=== PATIENT | female | born 1990 | race Caucasian/White ===

== ENCOUNTER 2021-08-14 00:28 | Outpatient (CLI) | payer BC ==
[~2021-08-14] VITALS: Ht 175.3 cm; Wt 132.7 kg
[2021-08-14 00:40] VITALS: BP 143/87; PULSE 88; TEMP 97.7
[2021-08-14] MEDS ORDERED: PRENATAL TABLET PO (00:55)
[2021-08-14 01:00] VITALS: BP 126/70; PULSE 81
--- NOTE | 2021-08-14 02:15 | NUR ---
0030- PT ARRIVES TO OB UNIT, AMBULATORY, ACCOMPANIED BY SPOUSE. PT C/O CTX. +FM, -LOF, -VB. 0035- DR. GONZALEZ ON FLOOR AND TOLD ABOUT PT. WILL UPDATE AFTER SVE. 0045- PT RATES PAIN 10/01. PT REPORTS SHE TOOK SOME TYLENOL AT HOME BUT DID NOT RELIEVE CTX PAIN. SVE: /-2 0100- DR. GONZALEZ UPDATED ON PT STATUS. 0110- WATER GIVEN TO PT. PT SITTING UP IN BED. 0150- SVE PERFORMED AND CERVIX UNCHANGED. PT REPORTS SHE FEELS LIKE THE CTX HAVE SPACED OUT SINCE GETTING HER. D/W PT THAT SHE WILL BE DISCHARGED HOME SINCE HER EXAM WAS THE SAME AND IS NOT ELENITA OFTEN. PT VERBALIZES UNDERSTANDING. LABOR PRECAUTIONS REVIEWED WITH PT AND SPOUSE. PT DEMONSTRATES UNDERSTANDING AND CAN VERBALIZE WHEN TO RETURN TO HOSPITAL. 0207- DISCHARGE INSTRUCTIONS REVIEWED AND SIGNED. ALL QUESTIONS ANSWERED. PT AMBULATED OFF UNIT, ACCOMPANIED BY SPOUSE, [facility].
== END 2021-08-14 02:07 | disposition home or self-care (01) ==
LOC: LDRO 00:28 → LDR 00:30 → LDRO 02:07
DX: O47.9 False labor, unspecified (principal); Z3A.00 Weeks of gestation of pregnancy not specified
CPT/HCPCS: OP

== ENCOUNTER 2021-08-16 08:51 | Inpatient (IN) | payer BC ==
[2021-08-16] VITALS (47 sets, daily range): BP systolic 113–158; BP diastolic 65–97; PULSE 58–109; TEMP 97.5–98.1
[~2021-08-16] VITALS: Ht 172.7 cm; Wt 132.7 kg
[~2021-08-16 08:51] MED LIST: PRENATAL TABLET PO
--- NOTE | 2021-08-16 09:00 | NUR ---
0900 - PATIENT AMBULATORY TO LDR6 WITH SPOUSE. PATIENT ORIENTED TO ROOM AND CHANGES INTO GOWN. 0911 - PATIENT PLACED ON EFM AND TOCO MONITOR. VSS. PLAN OF CARE DISCUSSED WITH PATIENT. CONSENT FORMS REVIEWED. PATIENT VERBALIZES UNDERSTANDING. 0920 - PIV PLACED. LABS OBTAINED ORDERED. LR INFUSION INITIATED ORDERED. 934 - MD EDUARDO AT BEDSIDE. PLAN OF CARE DISCUSSED WITH PATIENT AND SPOUSE SVE PERFORMED BY . /. 943 - AROM PERFORMED BY MD EDUARDO. MECONIUM STAINED FLUID NOTED. PATIENT RESTING COMFORTABLY. CARE ONGOING.
--- NOTE | 2021-08-16 09:45 | NUR ---
0940 - PATIENT UP FOR BRP. VOIDED. RETURNED TO BED FOR AROM WITH MD CHELSY.
[2021-08-16 10:12] LABS: BASO # 0.1 K/mm3 (0.0-0.2); BASO % 0.7 % (0.0-2.0); EOS # 0.7 K/mm3 (0.0-0.7); EOS % 7.8 % (0.0-4.0); GRAN # 5.8 K/mm3 (1.4-6.5); HEMATOCRIT 36.8 % (37.0-47.0); HEMOGLOBIN 12.7 g/dl (12.5-16.0); LYMPH # 2.2 K/mm3 (1.2-3.4); LYMPH % 23.6 % (20.0-51.0); MEAN CELL VOLUME 85 fl (80.0-100.0); MEAN CORPUSCULAR HEMOGLOBIN 29 pg (27-31); MEAN CORPUSCULAR HGB CONC 35 g/dl (33.0-37.0); MEAN PLATELET VOLUME 13.7 fl (7.4-10.4); MONO # 0.4 K/mm3 (0.1-0.6); MONO % 4.7 % (1.7-9.3); PLATELET COUNT 178 K/mm3 (130-400); RED BLOOD COUNT 4.33 M/mm3 (4.10-5.30)
--- NOTE | 2021-08-16 11:00 | NUR ---
1100 - PATIENT REPOSITIONING IN BED. INDESCERNIBLE TRACING ON EFM. 1115 - PATIENT UP TO BATHROOM. VOIDED. 1125 - PATIENT TO BIRTHING BALL. 1130 - DIFFICULTY WITH EFM TRACING AFTER REPEATED REPOSITIONING. PATIENT RETURNED TO BED FOR SPIRAL MONITOR PLACEMENT. 1134 - SPIRAL MONITOR PLACED. 1140 - PATIENT REPOSITIONED ON BIRTHING BALL.
--- NOTE | 2021-08-16 12:44 | NUR ---
1243 - MD EDUARDO AT BEDSIDE. PLAN OF CARE DISCUSSED. 1244 - SVE PERFORMED BY MD EDUARDO. 3-/-2. 1251 - TOCO TRACING DIFFICULT TO INTERPRET. IUPC INSERTED BY MD EDUARDO. 1255 - DECELS NOTED. MD EDUARDO REMAINS AT BEDSIDE. PATIENT REPOSITIONED. WILL CONTINUE TO MONITOR.
[2021-08-17 01:20] VITALS: BP 138/77; PULSE 76; TEMP 97.8
[2021-08-17 05:30] VITALS: BP 122/70; PULSE 82; TEMP 98
[2021-08-17 08:30] VITALS: BP 131/71; PULSE 85; TEMP 97.3
--- NOTE | 2021-08-17 09:03 | NUR ---
Initial visit; Parents thanked Video Photographer for offering congratulations and God's blessings for the of their son. Video Photographer thanked family for choosing [facility].
[2021-08-17] MEDS ORDERED: ROXICODONE 55 MG/TAB PO (09:27)
[2021-08-17] MEDS ORDERED: IBU600 MG PO (09:27)
[2021-08-17 14:15] VITALS: BP 114/59; PULSE 70; TEMP 98.4
[2021-08-17 17:25] VITALS: BP 131/66; PULSE 79; TEMP 98.1
[2021-08-17 22:50] VITALS: BP 131/71; PULSE 77; TEMP 97.8
[2021-08-18 07:30] VITALS: BP 126/77; PULSE 92; TEMP 98
== END 2021-08-18 15:05 | disposition home or self-care (01) | DRG 788 ==
LOC: LDR 08:51 → OB 08:51
PROVIDERS: ADMIT Obstetrics & Gynecology
PROC: 10D00Z1 Extraction of Products of Conception, Low, Open Approach (ICD-10-PCS; principal; 2021-08-16)
PROC: 3E033VJ Introduction of Other Hormone into Peripheral Vein, Percutaneous Approach (ICD-10-PCS; 2021-08-16)
DX: O99.214 Obesity complicating childbirth (principal); Z37.0 Single live birth; O77.0 Labor and delivery complicated by meconium in amniotic fluid; O76 Abnormality in fetal heart rate and rhythm complicating labor and delivery; Z3A.40 40 weeks gestation of pregnancy; Z23 Encounter for immunization
CPT/HCPCS: J0690; J1885; J2175; J2370; J2400; J2405; J2590; J2795; J7120

== ENCOUNTER 2024-04-15 05:39 | Inpatient (IN) | payer OTHER ==
[2024-04-15] VITALS (21 sets, daily range): BP systolic 97–135; BP diastolic 51–81; PULSE 50–90; TEMP 97.6–98.3
[~2024-04-15] VITALS: Ht 175.3 cm; Wt 138.2 kg
[~2024-04-15 05:39] MED LIST changes: +IBU600 MG PO; +LR 1,000 ML IV SCH; +Ondansetron 4 MG/2 ML VIAL IV SCH; +ROXICODONE 55 MG/TAB PO
--- NOTE | 2024-04-15 06:15 | NUR ---
PATIENT RECIEVED FROM [facility]. PATIENT RESTING IN BED. IV IN RIGHT FOREARM. 1ST BAG OF LACTATED RINGER'S RUNNING. 20 MIN NST ALMOST FINISHED.
[2024-04-15 06:40] LABS: BASO # 0.1 K/mm3 (0.0-0.2); BASO % 0.5 % (0.0-2.0); EOS # 0.3 K/mm3 (0.0-0.7); EOS % 2.9 % (0.0-4.0); GRAN # 6.2 K/mm3 (1.4-6.5); GRAN % 61.1 % (42.2-75.2); HEMOGLOBIN 11.7 g/dl (12.5-16.0); LYMPH % 29.5 % (20.0-51.0); MEAN CELL VOLUME 82 fl (80.0-100.0); MEAN CORPUSCULAR HEMOGLOBIN 28 pg (27-31); MEAN CORPUSCULAR HGB CONC 34 g/dl (33.0-37.0); MEAN PLATELET VOLUME 14.3 fl (7.4-10.4); MONO # 0.6 K/mm3 (0.1-0.6); MONO % 5.5 % (1.7-9.3); PLATELET COUNT 150 K/mm3 (130-400); RED BLOOD COUNT 4.15 M/mm3 (4.10-5.30); REDCELL DISTRIBUTION WIDTH-CV 13.1 % (11.5-14.5)
[2024-04-15 06:43] LABS: HEMATOCRIT 34.1 % (37.0-47.0)
[2024-04-15] MEDS ORDERED: Ketorolac 30 MG/ML VIAL ONE (06:59)
[2024-04-15] MEDS ORDERED: Ondansetron 4 MG/2 ML VIAL ONE (06:59)
[2024-04-15] MEDS ORDERED: NS 10 ML IV ONE (06:59)
[2024-04-15] MEDS ORDERED: dexAMETHasone 10 MG/ML VIAL ONE (06:59)
[2024-04-15] MEDS ORDERED: Oxytocin 10 UNITS/ML VIAL ONE (06:59)
[2024-04-15] MEDS ORDERED: GLUCOPHAGE500 MG/TAB PO (07:01)
[2024-04-15] MEDS ORDERED: LR 1,000 ML IV ONE (07:07)
[2024-04-15] MEDS ORDERED: Ondansetron 4 MG/2 ML VIAL IV PRN (08:45)
[2024-04-15] MEDS ORDERED: Loratadine 10 MG TAB PO PRN (08:45)
[2024-04-15] MEDS ORDERED: Magnes Hydrox (MOM) 80 MG/ML 30 ML CUP PO PRN (08:45)
[2024-04-15] MEDS ORDERED: Acetaminophen 500 MG TAB PO SCH (08:45)
[2024-04-15] MEDS ORDERED: Morphine 4 MG/ML VIAL IV PRN (08:45)
[2024-04-15] MEDS ORDERED: Tdap Vaccine 0.5 ML SYRINGE IM SCH (08:45)
[2024-04-15] MEDS ORDERED: oxyCODONE 5 MG TAB PO PRN (08:45)
[2024-04-15] MEDS ORDERED: LR 1,000 ML IV PRN (08:45)
[2024-04-15] MEDS ORDERED: Naloxone 0.4 MG/ML VIAL IV PRN (08:45)
[2024-04-15] MEDS ORDERED: Measles/Mumps/Rubella Virus Vaccine Live w Diluent 0.5 ML VIAL SQ SCH (08:45)
--- NOTE | 2024-04-15 09:00 | NUR ---
ESTELLA MORRIS AT BEDSIDE. CAMPUS COORDINATOR NOTIFIED THAT PATIENT HAS HAD A COUPLE OF PRESSURES BELOW 100 SYSTOLIC BUT HAS DENIED ANY SYMPTOMS AT THIS TIME. FUNDUS IS FIRM AND BLEEDING IS WNL.CAMPUS COORDINATOR NOTIFIED THAT LAST BLOOD PRESSURE WAS IMPROVED. CAMPUS COORDINATOR NOTIFIED THAT A COUPLE OF TIMES HEART RATE HAS BEEN 48-50BPM. PATIENT REPORTS THAT THERE IS A FAMILY HISTORY OF LOW HEART RATE. CAMPUS COORDINATOR PROVIDER IS OKAY WITH PACU DISCAHRGE.
--- NOTE | 2024-04-15 10:52 | NUR ---
Parents thanked Group Managing Director for offering congratulations and God's blessings for the of their daughter. Group Managing Director thanked family for choosing [facility].
--- NOTE | 2024-04-15 14:10 | NUR ---
PATIENT ASSISTED TO DANGE AT EDGE OF BED. PATIENT ASSISTED TO STAND AT EDGE OF BED X1 RN. PATIENT ASSISTED TO BATHROOM. ROMERO CATHETER REMOVED. PERICARE COMPLETED. PATIENT UNABLE TO VOID. PATIENT STANDBY ASSISTED X1 RN TO CHAIR.
[2024-04-15] MEDS ORDERED: Ibuprofen 600 MG TAB PO SCH (14:32)
[2024-04-15] MEDS ORDERED: Sennosides/Docusate 8.6-50 MG TAB PO SCH (17:00)
[2024-04-15] MEDS ORDERED: traZODone 50 MG TAB PO PRN (21:00)
[2024-04-16 00:17] VITALS: BP 134/82; PULSE 54; TEMP 98.3
[2024-04-16 05:29] VITALS: BP 117/53; PULSE 60; TEMP 97.8
[2024-04-16 07:04] VITALS: BP 114/69; PULSE 75
--- NOTE | 2024-04-16 11:03 | NUR ---
Follow-up visit; Boatbuilder Apprentice Wood was able to see patient after she gave and offered congratulations and God's blessings for the of her daughter. Boatbuilder Apprentice Wood enjoyed talking with an employee/patient.
[2024-04-16 16:38] VITALS: BP 119/75; PULSE 75; TEMP 98.2
[2024-04-16 20:55] VITALS: BP 118/58; PULSE 65; TEMP 98.1
[2024-04-17 08:00] VITALS: BP 111/75; PULSE 72; TEMP 97.7
--- NOTE | 2024-04-17 10:50 | NUR ---
ALL DC INSTRUCTIONS AND FOLLOW UP APPOINTMENTS REVIEWED WITH PT AND FOB. PT DENIES FURTHER QUESTION OR CONCERNS. DISCHARGED FROM UNIT IN STABLE CONDITION AT THIS TIME.
== END 2024-04-17 10:50 | disposition home or self-care (01) | DRG 788 ==
LOC: OB 05:39
PROVIDERS: ADMIT Obstetrics & Gynecology
PROC: 10D00Z1 Extraction of Products of Conception, Low, Open Approach (ICD-10-PCS; principal; 2024-04-15)
DX: O34.211 Maternal care for low transverse scar from previous cesarean delivery (principal); O99.344 Other mental disorders complicating childbirth; O99.214 Obesity complicating childbirth; Z3A.39 39 weeks gestation of pregnancy; Z37.0 Single live birth; F41.9 Anxiety disorder, unspecified
CPT/HCPCS: J0665; J0690; J1100; J1885; J2405; J2590; J2765; J7120